=== PATIENT | male | born 2000 | race Caucasian/White ===

== ENCOUNTER → 2023-04-12 | Outpatient (CLI) | payer OTHER | END | disposition home or self-care (01) | LOC: RADMN 10:35 | PROVIDERS: ATTEND Physical Therapist | DX: M84.361A Stress fracture, right tibia, initial encounter for fracture (principal); F48.8 Other specified nonpsychotic mental disorders; X58.XXXA Exposure to other specified factors, initial encounter; Y93.89 Activity, other specified; Y92.89 Other specified places as the place of occurrence of the external cause; Y99.8 Other external cause status | CPT/HCPCS: 73718 ==